=== PATIENT | male | born 1945 | race Hispanic/Latino ===

== ENCOUNTER 2018-04-27 19:26 | Emergency (ER) | payer MEDICARE ==
[~2018-04-27] VITALS: Ht 157.5 cm; Wt 63.5 kg
[2018-04-27] MEDS ORDERED: PANTOPRAZOLE 40 MG 10ML VIAL IV STA (19:34)
[2018-04-27] MEDS ORDERED: ACETAMINOPHEN/CODEINE 300MG - 30MG TAB PO ONE (20:15)
[2018-04-27 20:40] LABS: BILIRUBIN,URINE NEGATIVE (NEGATIVE); CLARITY,URINE SL CLOUDY (CLEAR); COLOR,URINE STRAW (YELLOW); KETONES,URINE TRACE (NEGATIVE); LEUKOCYTE ESTERASE ,URINE 2+ (NEGATIVE); NITRITE,URINE NEGATIVE (NEGATIVE); PROTEIN,URINE DIPSTICK 2+ (NEGATIVE); URINE UROBILINOGEN 1 mg/dL (0.2 - 1)
--- NOTE | 2018-04-27 20:43 | Diagnostic Imaging Report ---
Frontal and lateral views of the chest. HISTORY: Cough, fever, shortness of breath COMPARISON: None available. DISCUSSION: Lungs and pleura: Apparent emphysematous versus postsurgical changes on the right greater than left with possible large bulla. A moderate right pleural effusion which may be a component of loculation. Presumed adjacent atelectasis. Heart and mediastinum: The cardiomediastinal silhouette appears unremarkable. Bones and soft tissues: Chronic appearing fracture versus postsurgical deformity involving the posterior lateral aspect of the right fifth rib, correlate for any surgical history. Probable similar deformity involving the adjacent sixth rib. IMPRESSION: 1. Emphysematous versus postsurgical changes of the right lung and a moderate right pleural effusion which may be a component of loculation. If prior radiographs from an outside institution can be obtained for comparison, this would be helpful. 2. Recommend short term follow up PA and lateral chest radiographs, in 6-8 weeks, to evaluate for resolution. Signed by: Dr. Jone Anderson D.O., M.M.M. on 04/27/2018 8:40 PM
[2018-04-27 20:48] LABS: STREPTOCOCCUS GRP A ANTIGEN NEGATIVE (NEGATIVE)
[2018-04-27 20:49] LABS: BACTERIA,URINE MANY /HPF
[2018-04-27 20:58] LABS: INFLUENZAE A&B ANTIGEN (RAPID) NEGATIVE (NEGATIVE)
[2018-04-27 21:20] LABS: BASOPHILS % 0.2 % (0.0-1.0); HEMATOCRIT 30.5 % (38.2-49.6); HEMOGLOBIN 10.7 g/dL (14.0-18.0); LYMPHOCYTES # (AUTO) 0.7 (1.0-3.2); LYMPHOCYTES % 7.1 % (18.0-39.1); MEAN CORPUSCULAR HEMOGLOBIN 33.8 pg (28-32); MEAN CORPUSCULAR HGB CONC 35.1 g/dL (31-35); MEAN CORPUSCULAR VOLUME 96.2 fL (81-99); MONOCYTES # (AUTO) 1.4 (0.2-0.8); MONOCYTES % 14.9 % (4.4-11.3); NEUTROPHILS # (AUTO) 7.1 (2.1-6.9); NEUTROPHILS % 77.4 % (38.7-80.0); PLATELET COUNT 189 x10e3/uL (140-360); RED BLOOD COUNT 3.17 x10e6/uL (4.3-5.7); RED CELL DISTRIBUTION WIDTH 12.1 % (11.7-14.4)
[2018-04-27 21:38] LABS: ALANINE AMINOTRANSFERASE 14 IU/L (0-55); ALBUMIN/GLOBULIN RATIO 0.9 (0.8-2.0); ALKALINE PHOSPHATASE 61 IU/L (40-150); ANION GAP 13.2 mmol/L (8-16); BLOOD UREA NITROGEN 29 mg/dL (7-26); BUN/CREATININE RATIO 30 (6-25); CALCIUM 8.6 mg/dL (8.4-10.2); CARBON DIOXIDE 22 mmol/L (22-29); CHLORIDE 100 mmol/L (98-107); CREATININE, SERUM 0.97 mg/dL (0.72-1.25); EST GLOMERULAR FILTRATION RATE > 60 ML/MIN (60-); GLUCOSE 146 mg/dL (74-118); POTASSIUM 4.2 mmol/L (3.5-5.1); SODIUM 131 mmol/L (136-145)
[2018-04-27] MEDS ORDERED: AZITHROMYCIN 500MG/NS 250 ML 250 ML IV STA (22:33)
[2018-04-27] MEDS ORDERED: CEFTRIAXONE SOD 1 GM/NS 50 ML 50 ML IV ONE (22:45)
[2018-04-27] MEDS ORDERED: SODIUM CHLORIDE 0.9% 1000ML 1,000 ML IV SCH (22:45)
[2018-04-27] MEDS ORDERED: IOPAMIDOL 370 MG/ML 200 ML INFUS..BTL INJ ONE (23:28)
[2018-04-27] MEDS ORDERED: SODIUM CHLORIDE 0.9% 50ML 50 ML ONE (23:28)
--- NOTE | 2018-04-27 23:32 | Diagnostic Imaging Report ---
EXAMINATION: CT scan of the chest with contrast. TECHNIQUE: Spiral CT images of the chest were performed from the lung apices to the level of the adrenal glands after the intravenous administration of 100 cc of Isovue 370. Coronal and sagittal reformatted images were obtained. COMPARISON: Chest 2 views 04/27/2018 CLINICAL HISTORY:Fever, shortness of breath DISCUSSION: LINES/TUBES: None. LUNGS AND AIRWAYS: Multiple linear opacities are noted in the lateral aspect of the right lower lobe (for example series 3, image 72) anterolisthesis of the lateral aspect of the right middle lobe (for example series 3, image 74), consistent with scarring. Similar linear opacities are noted in the posteromedial aspect of the left lower lobe (example series 3, image 79). No consolidation or masses. 4-5 mm calcified granuloma in the right upper lobe (series 3, image 34). No pulmonary nodules. Airways are clear, without endobronchial lesions. Mild wall thickening in the central aspect of upper and lower bronchi. PLEURA: No pneumothorax or pleural effusions. HEART AND MEDIASTINUM: The thyroid gland is normal. Heart size is borderline enlarged, with mild prominence of the right atrium and left atrium. The aorta is nonaneurysmal. Atherosclerotic calcification of the thoracic aortic arch and to a lesser degree coronary arteries. LYMPH NODES: There is no mediastinal, hilar or axillary lymphadenopathy. Calcified right lower paratracheal lymph node (series 2, image 42). ABDOMEN: Limited contrast-enhanced views of the upper abdomen show no abnormality within the visualized liver, spleen, pancreas, or kidneys. The adrenal glands are unremarkable. BONES AND SOFT TISSUES: Generalized osteopenia. Degenerative disc changes in the thoracic spine. No aggressive lytic lesions. Partial resection of the right fifth rib, which may reflect postoperative changes. IMPRESSION: 1. Linear opacities in right lower lobe and right middle lobe, consistent with scarring. Linear scarring is also noted to a lesser degree in the posteromedial left lower lobe. No consolidation, masses or nodules. 2. Mild wall thickening in the central aspect of the upper and lower bronchi, which may reflect sequela of bronchitis. 3. Borderline cardiomegaly. Signed by: Dr. True Johnson M.D. on 04/27/2018 11:28 PM
[2018-04-28] MEDS ORDERED: KEFLEX500 MG PO (00:19)
[2018-04-28 01:16] VITALS: BP 107/55
== END 2018-04-28 01:20 | disposition home or self-care (01) ==
LOC: ER 19:26
DX: R30.0 Dysuria (principal); N30.90 Cystitis, unspecified without hematuria
CPT/HCPCS: 36415; 71046; 71260; 80053; 81001; 83518; 85025; 87070; 87400; 99284; J0456; J0696; J7030; Q9967

== ENCOUNTER 2018-07-28 09:45 | Inpatient (IN) | payer MEDICARE ==
[~2018-07-28] VITALS: Ht 160 cm; Wt 64.9 kg
[~2018-07-28 09:45] MED LIST: KEFLEX500 MG PO
--- OUTSIDE RECORDS SUMMARY | 2018-07-28 09:48 | XMS REPORT ---
Author Author [facility] Address Unknown Phone Unavailable Care Team Providers Care Office Rn Name Role Phone Chelsie RUBIO Unavailable Unavailable Problems This patient has no known problems. Allergies, Adverse Reactions, Alerts This patient has no known allergies or adverse reactions. Medications This patient has no known medications. Results Test Description Test Time Test Comments Text Results Atomic Results Result Comments CT CHEST W 2018-04-27 23:20:00 [place] [address] Patient Name: LUIS ARMANDO CRANDALL MR #: [id number] : 1945 Age/Sex: 73/M Req #: [id number] [facility] Physician: Ordered by: TOMÁS RUBIO MD Report #: [id number] Location: ER Room/Bed: Procedure: [id number] CT/CT CHEST W Exam Date: 04/27/18 Exam Time: 2251 REPORT STATUS: Signed EXAMINATION: CT scan of the chest with contrast. TECHNIQUE: Spiral CT images of the chest were performed from the lung apices to the level of the adrenal glands after the intravenous administration of 100 cc of Isovue 370. Coronal and sagittal reformatted images were obtained. COMPARISON: Chest 2 views 04/27/2018 CLINICAL HISTORY:Fever, shortness of breath DISCUSSION: LINES/TUBES: None. LUNGS AND AIRWAYS: Multiple linear opacities are noted in the lateral aspect of the right lower lobe (for example series 3, image 72) anterolisthesis of the lateral aspect of the right middle lobe (for example series 3, image 74), consistent with scarring. Similar linear opacities are noted in the posteromedial aspect of the left lower lobe (example series 3, image 79). No consolidation or masses. 4-5 mm calcified granuloma in the right upper lobe (series 3, image 34). No pulmonary nodules. Airways are clear, without endobronchial lesions. Mild wall thickening in the central aspect of upper and lower bronchi. PLEURA: No pneumothorax or pleural effusions. HEART AND MEDIASTINUM: The thyroid gland is normal. Heart size is borderline enlarged, with mild prominence of the right atrium and left atrium. The aorta is nonaneurysmal. Atherosclerotic calcification of the thoracic aortic arch and to a lesser degree coronary arteries. LYMPH NODES: There is no mediastinal, hilar or axillary lymphadenopathy. Calcified right lower paratracheal lymph node (series 2, image 42). ABDOMEN: Limited contrast-enhanced views of the upper abdomen show no abnormality within the visualized liver, spleen, pancreas, or kidneys. The adrenal glands are unremarkable. BONES AND SOFT TISSUES: Generalized osteopenia. Degenerative disc changes in the thoracic spine. No aggressive lytic lesions. Partial resection of the right fifth rib, which may reflect postoperative changes. IMPRESSION: 1. Linear opacities in right lower lobe and right middle lobe, consistent with scarring. Linear scarring is also noted to a lesser degree in the posteromedial left lower lobe. No consolidation, masses or nodules. 2. Mild wall thickening in the central aspect of the upper and lower bronchi, which may reflect sequela of bronchitis. 3. Borderline cardiomegaly. Signed by: Dr. Juan Johnson M.D. on 04/27/2018 11:28 PM Dictated By: JUAN JOHNSON MD 27 Transcribed By: DARRON on 04/27/182327 COPY TO: TOMÁS RUBIO MD CHEST 2 VIEWS 2018-04-27 20:33:00 [place] [address] Patient Name: LUIS ARMANDO CRANDALL MR #: [id number] : 1945 Age/Sex: 73/M Req #: [id number] Physician: Ordered by: TOMÁS RUBIO MD Report #: [id number] Location: ER Room/Bed: Procedure: [id number] DX/CHEST 2 VIEWS Exam Date: 04/27/18 Exam Time: 2024 REPORT STATUS: Signed Frontal and lateral views of the chest. HISTORY: Cough, fever, shortness of breath COMPARISON: None available. DISCUSSION: Lungs and pleura: Apparent emphysematous versus postsurgical changes on the right greater than left with possible large bulla. A moderate right pleural effusion which may be a component of loculation. Presumed adjacent atelectasis. Heart and mediastinum: The cardiomediastinal silhouette appears unremarkable. Bones and soft tissues: Chronic appearing fracture versus postsurgical deformity involving the posterior lateral aspect of the right fifth rib, correlate for any surgical history. Probable similar deformity involving the adjacent sixth rib. IMPRESSION: 1. Emphysematous versus postsurgical changes of the right lung and a moderate right pleural effusion which may be a component of loculation. If prior radiographs from an outside institution can be obtained for comparison, this would be helpful. 2. Recommend short term follow up PA and lateral chest rad iographs, in 6-8 weeks, to evaluate for resolution. Signed by: Dr. Brandi Anderson D.O., M.M.M. on 04/27/2018 8:40 PM Dictated By: BRANDI ANDERSON DO 39 Transcribed By: DARRON on 04/27/182039 COPY TO: OTMÁS RUBIO MD
[2018-07-28] MEDS ORDERED: SODIUM CHLORIDE 0.9% 1000ML 1,000 ML IV STA (10:10)
[2018-07-28] MEDS ORDERED: ONDANSETRON HCL INJ 2MG/ML 2ML 2 MG/ML VIAL IV STA (10:10)
[2018-07-28] MEDS ORDERED: MORPHINE SULFATE 2 MG/ML SYR 1ML IV STA (10:10)
[2018-07-28] MEDS ORDERED: FOLIC ACID1 MG PO (10:12)
[2018-07-28] MEDS ORDERED: FERROUS SULFAT325 MG PO (10:12)
[2018-07-28] MEDS ORDERED: METFORMIN HCL500 MG PO (10:12)
[2018-07-28] MEDS ORDERED: TAMSULOSIN PO (10:12)
[2018-07-28] MEDS ORDERED: LACTULOSE10 GM/151 PO (10:12)
[2018-07-28] MEDS ORDERED: OXYBUTYNIN CHLOR5 M1 PO (10:12)
[2018-07-28] MEDS ORDERED: ENALAPRIL MALEA20 MG PO (10:12)
[2018-07-28] MEDS ORDERED: DIATRIZOATE MEGL/DIATRIZOA SOD 30 ML BTL PO ONE (10:26)
[2018-07-28] MEDS ORDERED: MORPHINE SULFATE INJ 4 MG/ML INJ 1ML IV ONE (10:30)
[2018-07-28 10:35] LABS: INR 0.86; PROTHROMBIN TIME 12.2 seconds (11.9-14.5)
[2018-07-28 10:36] LABS: PARTIAL THROMBOPLASTIN TIME 33.7 seconds (23.8-35.5)
[2018-07-28 10:53] LABS: ALANINE AMINOTRANSFERASE 9 IU/L (0-55); ALBUMIN 4.1 g/dL (3.5-5.0); ALBUMIN/GLOBULIN RATIO 1.2 (0.8-2.0); ALKALINE PHOSPHATASE 84 IU/L (40-150); ANION GAP 11.5 mmol/L (8-16); BLOOD UREA NITROGEN 20 mg/dL (7-26); BUN/CREATININE RATIO 22 (6-25); CALCIUM 9.8 mg/dL (8.4-10.2); CARBON DIOXIDE 24 mmol/L (22-29); CHLORIDE 108 mmol/L (98-107); CREATINE KINASE 47 IU/L (30-200); CREATININE, SERUM 0.92 mg/dL (0.72-1.25); EST GLOMERULAR FILTRATION RATE > 60 ML/MIN (60-); GLUCOSE 168 mg/dL (74-118); POTASSIUM 4.5 mmol/L (3.5-5.1); SODIUM 139 mmol/L (136-145)
[2018-07-28 11:06] LABS: BASOPHILS % 0.3 % (0.0-1.0); EOSINOPHILS # (AUTO) 0.1 (0.0-0.4); EOSINOPHILS % 0.8 % (0.0-6.0); HEMOGLOBIN 13.1 g/dL (14.0-18.0); LYMPHOCYTES # (AUTO) 1.1 (1.0-3.2); LYMPHOCYTES % 11.7 % (18.0-39.1); MEAN CORPUSCULAR HEMOGLOBIN 32.8 pg (28-32); MEAN CORPUSCULAR HGB CONC 34.5 g/dL (31-35); MONOCYTES # (AUTO) 0.5 (0.2-0.8); MONOCYTES % 5.7 % (4.4-11.3); NEUTROPHILS # (AUTO) 7.6 (2.1-6.9); PLATELET COUNT 269 x10e3/uL (140-360); RED CELL DISTRIBUTION WIDTH 13.1 % (11.7-14.4)
[2018-07-28] MEDS ORDERED: HYDRALAZINE HCL 20 MG/ML VIAL IV STA (11:43)
--- NOTE | 2018-07-28 12:09 | NUR ---
PATIENT HAD ONE EPISODE OF VOMITING WITH CONSUMING ORAL CONTRAST; PATIENT INSTRUCTED TO HOLD ON REMAINING AMOUNT; WILL CONTINUE TO MONITOR
[2018-07-28] MEDS: SODIUM CHLORIDE 0.9% 250ML IRRIG IR SCH ×3 (12:30→20:33)
[2018-07-28] MEDS ORDERED: MORPHINE SULFATE 2 MG/ML SYR 1ML IV PRN (12:30)
[2018-07-28] MEDS ORDERED: ONDANSETRON HCL INJ 2MG/ML 2ML 2 MG/ML VIAL IV PRN (12:30)
[2018-07-28] MEDS ORDERED: DEXTROSE 50% SYRINGE 50 ML IV PRN (12:45)
[2018-07-28] MEDS ORDERED: MORPHINE SULFATE INJ 4 MG/ML INJ 1ML IV PRN (12:45)
[2018-07-28 13:00] LABS: BILIRUBIN,URINE NEGATIVE (NEGATIVE); COLOR,URINE YELLOW (YELLOW); KETONES,URINE NEGATIVE (NEGATIVE); LEUKOCYTE ESTERASE ,URINE TRACE (NEGATIVE); NITRITE,URINE NEGATIVE (NEGATIVE); PROTEIN,URINE DIPSTICK TRACE (NEGATIVE); URINE UROBILINOGEN 0.2 mg/dL (0.2 - 1)
[2018-07-28] MEDS ORDERED: CEFEPIME 1GM/NS 0.9% 50 ML 50 ML IV SCH (13:00)
[2018-07-28 13:04] LABS: CLARITY,URINE CLOUDY (CLEAR)
--- NOTE | 2018-07-28 13:08 | Diagnostic Imaging Report ---
Examination: Single AP view of the chest. COMPARISON: CT chest 04/27/2018 INDICATION: Abdominal pain DISCUSSION: Lung volumes are low. Linear opacity in the right mid and lower lungs and. No consolidation, pleural effusion, or pneumothorax. Stable cardiomediastinal contour. No acute osseous abnormality. IMPRESSION: Low lung volumes without acute cardiopulmonary abnormality. Stable linear scar in the right mid and lower lung zones. Signed by: Dr. Zhang Gracia M.D. on 07/28/2018 1:04 PM
[2018-07-28] MEDS ORDERED: LORAZEPAM INJ 2 MG/ML VIAL IV ONE (13:15)
[2018-07-28 13:23] LABS: BACTERIA,URINE MANY /HPF; EPITHELIAL CELLS,URINE FEW /LPF
[2018-07-28] MEDS ORDERED: BENZOCAINE/TETRACAINE/BUTAMBEN AERO SPRAY 56 GM CAN ONE (13:23)
[2018-07-28] MEDS ORDERED: METRONIDAZOLE 250MG/NS 50ML 50 ML IV SCH ×2 (13:30→18:00)
[2018-07-28] MEDS ORDERED: IOPAMIDOL 370 MG/ML 200 ML INFUS..BTL INJ ONE (13:51)
[2018-07-28] MEDS ORDERED: SODIUM CHLORIDE 0.9% 50ML 50 ML ONE (13:51)
--- NOTE | 2018-07-28 14:05 | Diagnostic Imaging Report ---
EXAMINATION: CT of the abdomen and pelvis with contrast. TECHNIQUE: Spiral CT images of the abdomen and pelvis were performed from the lung bases to the lesser trochanters after the intravenous administration of 100 cc Isovue-370 and the oral administration of Gastrografin.. Coronal and sagittal reformatted images were obtained. COMPARISON: CT chest 04/27/2018 CLINICAL HISTORY:Abdominal pain, concern for small bowel obstruction DISCUSSION: ABDOMEN/PELVIS: LOWER THORAX:Subsegmental atelectasis or scar in the lower lobes. No pleural or pericardial effusion. HEPATOBILIARY: No focal hepatic lesions. No intra-or extrahepatic biliary ductal dilation. The gallbladder has been removed. SPLEEN: Multiple calcified granulomata. No splenomegaly. PANCREAS: No focal masses or ductal dilatation. ADRENALS: No adrenal nodules. KIDNEYS/URETERS: Lobulated contour of the kidneys may be congenital or postinflammatory. 1.8 cm low-attenuation lesion in the interpolar left kidney has slightly greater than expected attenuation for a simple cyst (30 Hounsfield units). No additional focal renal lesion. No hydronephrosis or calculi. PELVIC ORGANS/BLADDER: The urinary bladder is distended and unremarkable. Probable postsurgical changes of transurethral prostatectomy. PERITONEUM/RETROPERITONEUM: Small volume perihepatic and right paracolic gutter free fluid average attenuation 15-20 Hounsfield units. No free air. LYMPH NODES: No pelvic sidewall, retroperitoneal, or mesenteric lymphadenopathy. VESSELS: Atherosclerotic calcification of the abdominal aorta, major branch vessels, and iliac arterial systems without aneurysmal dilatation. Mild stenosis of the proximal SMA due to noncalcified atherosclerotic plaque (series 2 image 28). Widely patent celiac and LINDEN origins. Patent single left and dual right renal arteries. Retroaortic left renal vein. Portal vein, splenic vein, and central superior mesenteric vein are patent. GI TRACT: Extensive diverticulosis of the distal descending and proximal sigmoid colon without wall thickening or adjacent inflammatory change. There is moderate dilatation of the ascending colon to a maximum of 7.7 cm in diameter, with mild dilatation of the transverse colon. No transition point is identified.. There is no small bowel dilatation. The appendix is not identified. BONES AND SOFT TISSUE: Extensive postsurgical changes of lumbar spine fusion. Diffuse osteopenia. No osseous destructive lesions. Postsurgical changes of right inguinal hernia repair. IMPRESSION: Marked gaseous distention of the cecum and ascending colon with lesser involvement of the transverse colon suggests ileus in the absence of transition point or obstructing mass lesion. No mabel pneumoperitoneum. Presumed reactive trace perihepatic and paracolic ascites. Sigmoid diverticulosis without findings of diverticulitis. Hypoattenuating left renal lesion is of greater than expected attenuation for a simple cyst and may reflect presence of proteinaceous or hemorrhagic contents. Cystic nature may be confirmed by nonemergent renal ultrasound. Atherosclerotic vascular disease. Signed by: Dr. Zhang Gracia M.D. on 07/28/2018 2:01 PM
--- NOTE | 2018-07-28 14:10 | NUR ---
The p. was received fro ER via stretcher with nasogastric tube in place. It was placed to low intermittent wall suction and dark reddish brown liquid returned. There is an iv cath 18g in place to the right ac. The pt is easily aroused and denies pain at this time. adm procedures were completed and iv fluids initiated. The first dose of cefepime initiated and the flagyl will be given. The pt.'s son is at bedside. He has voided since arrival to the unit and is currently resting quietly.
[2018-07-28 14:35] VITALS: BP 137/63
[2018-07-28 14:40] VITALS: BP 137/63
--- NOTE | 2018-07-28 14:40 | Diagnostic Imaging Report ---
Exam: Abdominal film Clinical History: NG tube placement Comparison: CT abdomen and pelvis same day DISCUSSION: Enteric tube tip projects over the gastric fundus with sidehole projecting over the proximal gastric body. Gaseous distention of the large bowel seen to better advantage on comparison CT. Partially visualized lumbar spine fusion hardware. The right flank is not included on the radiograph. IMPRESSION: Enteric tube tip projects over the gastric fundus, with side-port distal to the GE junction. Signed by: Dr. Zhang Gracia M.D. on 07/28/2018 2:37 PM
[2018-07-28 14:46] VITALS: BP 137/63
[2018-07-28] MEDS: SODIUM CHLORIDE 0.9% 1000ML 1,000 ML IV SCH ×2 (15:11→20:24)
[2018-07-28] MEDS: INSULIN REGULAR, HUMAN 100 UNIT/1 ML 3ML VIAL SQ SCH ×2 (16:29→20:33)
[2018-07-28 17:06] VITALS: BP 177/79
[2018-07-28] MEDS: PIPER-TAZ 3.375 GM 50 ML IV SCH (18:00)
--- NOTE | 2018-07-28 18:10 | NUR ---
Dr. Khalil visited and new orders were given. He stated to inform the oncoming shift to watch the pt. closely and call him if any changes noted. A 16fr guajardo cath was placed successfully without any difficulty and return of 300cc light clear yellow obtained.
--- NOTE | 2018-07-28 19:30 | NUR ---
Rounding done & report received. Patient is lethargic but easily aroused, respirations even & unlabored, no distress noted. NGT to L nare, draining dark reddish brown fluid. Patient c/o abdominal pain, pain level 5/10, denies any pain medication at this time, denies any N/V at this time, informed patient to notify us if any changes occur. Xiong in place, draining clear yellow urine. Family at bedside. Call light within reach, side rails x2 raised, & bed set to lowest position.
[2018-07-28 20:00] VITALS: BP 188/74
[2018-07-28] MEDS: METRONIDAZOLE 500MG/NS 100ML 100 ML IV SCH (21:05)
[2018-07-28 23:40] VITALS: BP 188/74
[2018-07-29] VITALS (8 sets, daily range): BP systolic 145–178; BP diastolic 66–75
[2018-07-29] MEDS: SODIUM CHLORIDE 0.9% 250ML IRRIG IR SCH ×6 (00:25→20:43)
[2018-07-29] MEDS: PIPER-TAZ 3.375 GM 50 ML IV SCH ×4 (00:25→17:06)
[2018-07-29] MEDS: SODIUM CHLORIDE 0.9% 1000ML 1,000 ML IV SCH ×3 (01:51→21:24)
--- NOTE | 2018-07-29 02:34 | History and Physical ---
This is a 73-year-old male patient of mine, presented to the emergency room with complaining of abdominal pain. CHIEF COMPLAINT: Abdominal pain. HISTORY OF PRESENT ILLNESS: Mr. Samson is a 73-year-old male patient with chronic abdominal problem with constipation and irritable bowel syndrome with recurrent obstruction, presented to the emergency room with right upper quadrant epigastric pain and left upper abdomen also pain. The patient was describing some moderately severe pain. The patient had also feeling nauseous with pain. The patient denied any vomiting or diarrhea. REVIEW OF SYSTEMS: The patient has no constipation or black stools, but the patient has chronic back pain and weakness and poor ambulatory status. PAST MEDICAL HISTORY: The patient has a history of diabetes mellitus, hypertension, anemia, chronic back pain, BPH, hypertensive heart disease. PAST SURGICAL HISTORY: The patient had back surgery, cholecystectomy, and prostatectomy. ALLERGIES: NO KNOWN DRUG ALLERGIES. SOCIAL HISTORY: Denies smoking. Denies using alcohol. FAMILY HISTORY: Hypertension. MEDICATIONS: See from the list. PHYSICAL EXAMINATION: GENERAL: He is a middle-aged male patient lying in bed, not in any acute distress. VITAL SIGNS: Temperature 99, pulse rate 80, respiration rate 20, blood pressure 120/80. HEENT: Normocephalic, atraumatic. NECK: No JVD. No lymphadenopathy. LUNGS: Bilaterally equal fair entry. No rales. No rhonchi. HEART: S1 and S2. Regular rate and rhythm. No gallop. ABDOMEN: The patient has mild epigastric in the right upper quadrant tenderness. NEUROLOGIC: No focal neurological deficits. EXTREMITIES: Peripheral pulses present. No edema. ADMITTING IMPRESSION/DIAGNOSES: Intestinal obstruction, more likely at transverse colon , abdominal pain, history of irritable bowel syndrome, hypertensive heart disease, diabetes mellitus, and chronic back pain. PLAN: The patient will be admitted with the above diagnoses. The patient on IV fluid. Keep n.p.o. obtain General Surgery consultation, Dr. Khalil. NG tube and do NG tube suctioning. Surgery consultation has been done by Dr. Markus Khalil. Probably thinking the patient might be developing volvulus and he may need surgery if obstruction does not resolve spontaneously. MD CRISTIAN Valencia/WILTON /[id number]
--- NOTE | 2018-07-29 05:46 | NUR ---
Bed alarm went off, patient was found out of bed confused, stated he felt the need to urinate, reminded him he had a guajardo in place, assisted patient back into bed. Gown was noted to be damp, new gown was placed & accu check was done, BG @ 100. Patient states his pain has improved and abdomen appears less distended. Reminded patient to use call light when assistance is needed, voiced understanding.
[2018-07-29] MEDS: METRONIDAZOLE 500MG/NS 100ML 100 ML IV SCH ×3 (06:26→22:00)
[2018-07-29 06:35] LABS: BASOPHILS % 0.3 % (0.0-1.0); EOSINOPHILS % 0.3 % (0.0-6.0); HEMATOCRIT 31.7 % (38.2-49.6); HEMOGLOBIN 10.9 g/dL (14.0-18.0); MEAN CORPUSCULAR HEMOGLOBIN 32.3 pg (28-32); MEAN CORPUSCULAR HGB CONC 34.4 g/dL (31-35); MEAN CORPUSCULAR VOLUME 94.1 fL (81-99); MONOCYTES # (AUTO) 0.9 (0.2-0.8); MONOCYTES % 8.3 % (4.4-11.3); NEUTROPHILS # (AUTO) 9.2 (2.1-6.9); NEUTROPHILS % 81.8 % (38.7-80.0); PLATELET COUNT 228 x10e3/uL (140-360); RED BLOOD COUNT 3.37 x10e6/uL (4.3-5.7); RED CELL DISTRIBUTION WIDTH 12.9 % (11.7-14.4)
[2018-07-29 06:53] LABS: BLOOD UREA NITROGEN 8 mg/dL (7-26); BUN/CREATININE RATIO 13 (6-25); CALCIUM 8.3 mg/dL (8.4-10.2); CARBON DIOXIDE 23 mmol/L (22-29); CHLORIDE 108 mmol/L (98-107); CREATININE, SERUM 0.64 mg/dL (0.72-1.25); EST GLOMERULAR FILTRATION RATE > 60 ML/MIN (60-); GLUCOSE 106 mg/dL (74-118); SODIUM 138 mmol/L (136-145)
--- NOTE | 2018-07-29 07:12 | NUR ---
PT RESTING IN BED AA0X3. PT IN IN NO S.S OF DISTRESS. DENIES PAIN AT THIS TIME. PT HAS A RIGHT AC 18 G WITH NS AT 125CCHR. SITE IS CLEAN AND DRY PT HAS A VAIL CATH DRAINING CLEAR YELLOW URINE PT HAS AN NG TUBE TO THE LEFT NARE WITH LCS, DRAINAGE IN CANISTER IS DARK BROWN IN COLOR PT ABD IS DISTENDED , DENIES PAIN ON PALPATION ABD SOUNDS ARE PRESENT PT IS NPO FOR NOW WILL CONTINUE TO MONITOR CLOSELY, SIDE RAILSX2, BED WHEELS LOCKED, CALL LIGHT IS WITHIN EASY REACH, INSTRUCTED TO CALL FOR ASSISTANCE IF NEEDED
[2018-07-29] MEDS: INSULIN REGULAR, HUMAN 100 UNIT/1 ML 3ML VIAL SQ SCH ×4 (07:30→20:42)
[2018-07-29] MEDS: TAMSULOSIN HCL 0.4 MG CAP PO SCH (09:00)
[2018-07-29] MEDS: ENALAPRIL MALEATE 10 MG TAB PO SCH (09:00)
[2018-07-29] MEDS: FOLIC ACID 1 MG TAB PO SCH (09:00)
[2018-07-29] MEDS: OXYBUTYNIN CHLORIDE XL 5 MG TAB PO SCH (09:00)
[2018-07-29] MEDS: FERROUS SULFATE 325 MG TAB PO SCH (09:00)
--- NOTE | 2018-07-29 09:06 | Diagnostic Imaging Report ---
Exam: 3 view abdomen with upright chest dated 07/29/2018 at 7:47 AM History: Bowel obstruction Comparison: 07/28/2018 CT abdomen and pelvis and KUB Findings: Massive large bowel dilatation involving the cecum measures up to 16 cm. There is also transverse colon dilatation measuring up to 7 cm in the midabdomen. Postoperative changes involving the lower lumbar spine with rods and disc cages. No free air. An NG tube is present within the nondistended stomach. Upright chest reveals emphysematous changes involving the right hemithorax. There is left retrocardiac atelectasis. 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 Signed by: Dr. Desean Jang DO on 07/29/2018 9:02 AM
--- NOTE | 2018-07-29 09:20 | NUR ---
NS ENEMA GIVEN, PT HAS A SMALL BM WITH PEDAL SIZED SEDIMENTS OF STOOL PT STATES ABD COMFORT AFTER BM.
--- NOTE | 2018-07-29 09:30 | NUR ---
MD CR ROUNDED, HAS NOW ORDERS TO REPLACED LOW K OF 3.3 WITH 40MEQ IV ONCE ASKED MD CR IF IT WAS OK TO DC VAIL. STATES TO LEAVE FOR ANOTHER DAY FOR POSSIBLE SX NO ORDERS TO REMOVE VAIL GIVEN AT THIS TIME
[2018-07-29] MEDS ORDERED: POTASSIUM CHLORIDE 20MEQ/100ML 200 ML IV ONE (10:15)
[2018-07-29] MEDS ORDERED: METOPROLOL TARTRATE INJ 1 MG/ML VIAL IV PRN (10:15)
--- NOTE | 2018-07-29 19:08 | NUR ---
RECEIVED PT RESTING IN BED WITH NO S/S OF DISTRESS.RESPIRATIONS EVEN/NON LABORED.PT HAS A NG TUBE TO LEFT NARE CONNECTED TO LCS.DARK BROWN COLORED OUTPUT NOTED.PT HAS A VAIL IN PLACE DRAINING CLEAR YELLOW URINE.PT DENIES ANY PAIN AT THIS TIME.INSTRUCTED PT TO CALL FOR ASSISTANCE NEEDED BY USING CALL LIGHT.PT VERBALIZED UNDERSTANDING.BED IN LOWEST/LOCKED POSITION.BED ALARM ACTIVATED.CALL LIGHT WITHIN EASY REACH.
[2018-07-30] VITALS (10 sets, daily range): BP systolic 122–168; BP diastolic 66–77
[2018-07-30] MEDS: SODIUM CHLORIDE 0.9% 250ML IRRIG IR SCH ×4 (00:01→12:01)
[2018-07-30] MEDS: SODIUM CHLORIDE 0.9% 1000ML 1,000 ML IV SCH ×3 (04:23→23:32)
[2018-07-30] MEDS: METRONIDAZOLE 500MG/NS 100ML 100 ML IV SCH ×3 (05:36→21:58)
[2018-07-30 05:51] LABS: BASOPHILS % 0.4 % (0.0-1.0); EOSINOPHILS # (AUTO) 0.1 (0.0-0.4); EOSINOPHILS % 0.5 % (0.0-6.0); HEMATOCRIT 31.1 % (38.2-49.6); HEMOGLOBIN 10.8 g/dL (14.0-18.0); LYMPHOCYTES # (AUTO) 1.3 (1.0-3.2); LYMPHOCYTES % 14.1 % (18.0-39.1); MEAN CORPUSCULAR HEMOGLOBIN 32.6 pg (28-32); MEAN CORPUSCULAR HGB CONC 34.7 g/dL (31-35); MONOCYTES # (AUTO) 0.8 (0.2-0.8); MONOCYTES % 8.3 % (4.4-11.3); NEUTROPHILS % 76.2 % (38.7-80.0); PLATELET COUNT 196 x10e3/uL (140-360); RED BLOOD COUNT 3.31 x10e6/uL (4.3-5.7); RED CELL DISTRIBUTION WIDTH 12.8 % (11.7-14.4)
[2018-07-30 06:16] LABS: ALANINE AMINOTRANSFERASE 7 IU/L (0-55); ALBUMIN/GLOBULIN RATIO 1.1 (0.8-2.0); ALKALINE PHOSPHATASE 54 IU/L (40-150); ANION GAP 13.1 mmol/L (8-16); BLOOD UREA NITROGEN 10 mg/dL (7-26); BUN/CREATININE RATIO 14 (6-25); CALCIUM 8.5 mg/dL (8.4-10.2); CARBON DIOXIDE 30 mmol/L (22-29); CHLORIDE 103 mmol/L (98-107); CREATININE, SERUM 0.69 mg/dL (0.72-1.25); EST GLOMERULAR FILTRATION RATE > 60 ML/MIN (60-); GLUCOSE 77 mg/dL (74-118); POTASSIUM 3.1 mmol/L (3.5-5.1); SODIUM 143 mmol/L (136-145)
[2018-07-30] MEDS: PIPER-TAZ 3.375 GM 50 ML IV SCH ×4 (06:20→18:00)
--- NOTE | 2018-07-30 06:52 | NUR ---
REPORT GIVEN TO ONCOMING NURSE,WALKING ROUNDS MADE.PT RESTING IN BED WITH NO S/S OF DISTRESS.
--- NOTE | 2018-07-30 07:10 | NUR ---
PT RESTING IN BED AA0X3. PT IN IN NO S.S OF DISTRESS. DENIES PAIN AT THIS TIME. PT HAS A RIGHT AC 18 G WITH NS AT 125CCHR. SITE IS CLEAN AND DRY PT HAS A VAIL CATH DRAINING LIGHT COOKIE YELLOW URINE PT HAS AN NG TUBE TO THE LEFT NARE WITH LCS, DRAINAGE IN CANISTER IS DARK BROWN IN COLOR PT ABD IS DISTENDED BUT SOFT, DENIES PAIN ON PALPATION ABD SOUNDS ARE PRESENT PT REMAINS NPO WILL CONTINUE TO MONITOR CLOSELY, SIDE RAILSX2, BED WHEELS LOCKED, CALL LIGHT IS WITHIN EASY REACH, INSTRUCTED TO CALL FOR ASSISTANCE IF NEEDED
[2018-07-30] MEDS: INSULIN REGULAR, HUMAN 100 UNIT/1 ML 3ML VIAL SQ SCH ×4 (07:30→20:56)
[2018-07-30] MEDS: TAMSULOSIN HCL 0.4 MG CAP PO SCH (07:36)
[2018-07-30] MEDS: FERROUS SULFATE 325 MG TAB PO SCH (07:36)
[2018-07-30] MEDS: FOLIC ACID 1 MG TAB PO SCH (07:36)
[2018-07-30] MEDS: ENALAPRIL MALEATE 10 MG TAB PO SCH (07:36)
[2018-07-30] MEDS: OXYBUTYNIN CHLORIDE XL 5 MG TAB PO SCH (07:36)
--- NOTE | 2018-07-30 08:21 | NUR ---
paged md herzog for orders on npo status and low bs. awaiting for call back
--- NOTE | 2018-07-30 09:12 | NUR ---
REPAGED MD CR REGARDING PT LOW BS. PT IS ASYMPTOMATIC AT WITH A 72 READING AWAITING FOR CALL BACK
--- NOTE | 2018-07-30 10:27 | Diagnostic Imaging Report ---
Exam: Abdominal film with upright chest radiograph Clinical History: Volvulus Comparison: Acute abdominal series 07/29/2018 DISCUSSION: Chest: Stable position of enteric tube. Lungs remain well-inflated with chronic fibrotic changes in the bases. No new consolidation. Stable cardiomediastinal contour. Abdomen: No significant interval change in massive cecal dilatation and less extensive dilatation of the transverse colon. No mabel pneumoperitoneum. Enteric contrast material ingested for CT abdomen and pelvis 07/28/2018 now opacifies the rectum. No mass effect or organomegaly. Lumbar spine fusion hardware. IMPRESSION: Unchanged massive gaseous distention of the cecum and transverse colon, with interval passage of enteric contrast material into the rectum. No mabel pneumoperitoneum. Signed by: Dr. Zhang Gracia M.D. on 07/30/2018 10:24 AM
[2018-07-30] MEDS ORDERED: DEXTROSE 5%/0.45% SOD CHL 1,000 ML IV SCH (12:00)
[2018-07-30] MEDS ORDERED: POTASSIUM CHLORIDE 20MEQ/100ML 200 ML IV ONE (12:00)
--- NOTE | 2018-07-30 14:41 | NUR ---
ng tube dc. guajardo dc. pt tolerated well pt is now on clear liquid diet
--- NOTE | 2018-07-30 18:49 | NUR ---
PT VOIDED 150 AFTER VAIL REMOVAL
[2018-07-31] VITALS (8 sets, daily range): BP systolic 130–170; BP diastolic 60–70
[2018-07-31] MEDS: PIPER-TAZ 3.375 GM 50 ML IV SCH ×4 (00:14→17:26)
[2018-07-31] MEDS: METRONIDAZOLE 500MG/NS 100ML 100 ML IV SCH ×3 (05:18→21:48)
[2018-07-31 06:35] LABS: ANION GAP 10.1 mmol/L (8-16); BLOOD UREA NITROGEN 7 mg/dL (7-26); BUN/CREATININE RATIO 10 (6-25); CARBON DIOXIDE 29 mmol/L (22-29); CHLORIDE 101 mmol/L (98-107); CREATININE, SERUM 0.68 mg/dL (0.72-1.25); EST GLOMERULAR FILTRATION RATE > 60 ML/MIN (60-); GLUCOSE 104 mg/dL (74-118); POTASSIUM 3.1 mmol/L (3.5-5.1); SODIUM 137 mmol/L (136-145)
[2018-07-31] MEDS: SODIUM CHLORIDE 0.9% 1000ML 1,000 ML IV SCH (06:45)
--- NOTE | 2018-07-31 07:18 | NUR ---
REPORT GIVEN TO ONCOMING NURSE,WALKING ROUNDS DONE.PT RESTING IN BED WITH NO S/S OF DISTRESS
[2018-07-31] MEDS: INSULIN REGULAR, HUMAN 100 UNIT/1 ML 3ML VIAL SQ SCH ×4 (07:30→20:10)
--- NOTE | 2018-07-31 08:00 | NUR ---
The pt. is out of the room for abd xray. He denies pain or discomfort at this time.
[2018-07-31] MEDS: TAMSULOSIN HCL 0.4 MG CAP PO SCH (08:59)
[2018-07-31] MEDS: FOLIC ACID 1 MG TAB PO SCH (08:59)
[2018-07-31] MEDS: FERROUS SULFATE 325 MG TAB PO SCH (08:59)
[2018-07-31] MEDS: OXYBUTYNIN CHLORIDE XL 5 MG TAB PO SCH (08:59)
[2018-07-31] MEDS: ENALAPRIL MALEATE 10 MG TAB PO SCH (09:00)
--- NOTE | 2018-07-31 09:08 | Diagnostic Imaging Report ---
Exam: 3 view abdomen with upright chest dated 07/31/2018 at 8:00 AM History: Bowel obstruction Comparison: 07/30/2018 KUB Findings: Massive large bowel dilatation involving the cecum is slightly smaller and now measures 14.3 cm. There is also transverse colon dilatation measuring similar in size in the midabdomen. Postoperative changes involving the lower lumbar spine with rods and disc cages. No free air. The NG tube has been withdrawn. Contrast has reached the rectum. Upright chest reveals emphysematous changes involving the right hemithorax. There is left retrocardiac atelectasis. Impression: Findings of cecal volvulus with slight decrease in the maximal size. Signed by: Dr. Desean Jang DO on 07/31/2018 9:05 AM
[2018-07-31] MEDS ORDERED: POTASSIUM CHLORIDE 20 MEQ TAB CR PO ONE (10:30)
--- NOTE | 2018-07-31 10:53 | NUR ---
IMM EXPLAINED TO PT, SIGNED BY PT AND PLACED IN CHART COPY TO PT IN CARE TRANSITIONS FOLDER
[2018-07-31] MEDS ORDERED: SODIUM CHLORIDE 0.9% 250ML 250 ML ONE (17:19)
--- NOTE | 2018-07-31 18:58 | NUR ---
WALKING ROUNDS PERFORMED, RECEIVED PT LAYING SEMI FOWLERS IN BED, AAOX3, RR EVEN AND NON-LABORED, ON ROOM AIR. NO S/SX OF DISTRESS NOTED. LEFT PT LAYING SEMI FOWLERS IN BED, BED IN LOW LOCKED POSITION, SIDE RAILS UPX2, CALL LIGHT AND PHONE WITHIN REACH.
--- NOTE | 2018-07-31 19:49 | NUR ---
PAGE PLACED FOR MD Coy CR CONCERNING ELEVATED BP AND BRADYCARDIC WITH ONLY METOPROLOL TO GIVE. WAITING FOR CALLBACK.
--- NOTE | 2018-07-31 20:52 | NUR ---
SPOKE WITH MD Coy CR CONCERNING PT ELEVATED BP WITH LOW HR. NEW ORDERS RECEIVED.
[2018-07-31] MEDS ORDERED: CLONIDINE HCL 0.1 MG TAB PO PRN (21:00)
[2018-08-01] VITALS (8 sets, daily range): BP systolic 115–191; BP diastolic 56–80
[2018-08-01] MEDS: PIPER-TAZ 3.375 GM 50 ML IV SCH ×4 (00:20→18:10)
[2018-08-01 06:17] LABS: ALANINE AMINOTRANSFERASE 19 IU/L (0-55); ALBUMIN/GLOBULIN RATIO 1.1 (0.8-2.0); ALKALINE PHOSPHATASE 69 IU/L (40-150); ANION GAP 9.9 mmol/L (8-16); BLOOD UREA NITROGEN 5 mg/dL (7-26); BUN/CREATININE RATIO 7 (6-25); CALCIUM 8.6 mg/dL (8.4-10.2); CARBON DIOXIDE 31 mmol/L (22-29); CHLORIDE 102 mmol/L (98-107); EST GLOMERULAR FILTRATION RATE > 60 ML/MIN (60-); GLUCOSE 101 mg/dL (74-118); POTASSIUM 3.9 mmol/L (3.5-5.1); SODIUM 139 mmol/L (136-145)
[2018-08-01] MEDS: METRONIDAZOLE 500MG/NS 100ML 100 ML IV SCH ×3 (06:55→21:29)
[2018-08-01] MEDS: INSULIN REGULAR, HUMAN 100 UNIT/1 ML 3ML VIAL SQ SCH ×4 (07:30→21:29)
[2018-08-01] MEDS ORDERED: ONDANSETRON HCL 4 MG ORAL DISINTEGRATING TAB PO PRN (10:15)
[2018-08-01] MEDS: TAMSULOSIN HCL 0.4 MG CAP PO SCH (10:17)
[2018-08-01] MEDS: FOLIC ACID 1 MG TAB PO SCH (10:17)
[2018-08-01] MEDS: ENALAPRIL MALEATE 10 MG TAB PO SCH (10:17)
[2018-08-01] MEDS: OXYBUTYNIN CHLORIDE XL 5 MG TAB PO SCH (10:17)
[2018-08-01] MEDS: FERROUS SULFATE 325 MG TAB PO SCH (10:17)
[2018-08-01] MEDS: AMLODIPINE BESYLATE 5 MG TAB PO SCH (12:11)
--- NOTE | 2018-08-01 19:31 | NUR ---
WALKING ROUNDS PERFORMED, RECEIVED PT AMBULATING IN ROOM TO BATHROOM, PT IS AAOX3, RR EVEN AND NON-LABORED, ON ROOM AIR. NO S/SX OF DISTRESS NOTED. PT RETURNED TO BED AND LEFT LAYING SEMI FOWLERS IN BED, BED IN LOW LOCKED POSITION, SIDE RAILS UPX2, CALL LIGHT AND PHONE WITHIN REACH.
[2018-08-02] VITALS (8 sets, daily range): BP systolic 130–178; BP diastolic 60–74
[2018-08-02] MEDS: PIPER-TAZ 3.375 GM 50 ML IV SCH ×5 (00:13→23:52)
[2018-08-02 05:17] LABS: BASOPHILS % 0.3 % (0.0-1.0); EOSINOPHILS # (AUTO) 0.1 (0.0-0.4); EOSINOPHILS % 1.4 % (0.0-6.0); HEMATOCRIT 30.6 % (38.2-49.6); HEMOGLOBIN 10.9 g/dL (14.0-18.0); LYMPHOCYTES # (AUTO) 1.3 (1.0-3.2); MEAN CORPUSCULAR HEMOGLOBIN 33.1 pg (28-32); MEAN CORPUSCULAR HGB CONC 35.6 g/dL (31-35); MONOCYTES # (AUTO) 0.6 (0.2-0.8); MONOCYTES % 9.1 % (4.4-11.3); NEUTROPHILS # (AUTO) 4.9 (2.1-6.9); NEUTROPHILS % 71.1 % (38.7-80.0); PLATELET COUNT 193 x10e3/uL (140-360); RED BLOOD COUNT 3.29 x10e6/uL (4.3-5.7); RED CELL DISTRIBUTION WIDTH 12.7 % (11.7-14.4)
[2018-08-02 05:39] LABS: ANION GAP 13.2 mmol/L (8-16); BLOOD UREA NITROGEN 5 mg/dL (7-26); BUN/CREATININE RATIO 8 (6-25); CALCIUM 8.5 mg/dL (8.4-10.2); CARBON DIOXIDE 29 mmol/L (22-29); CHLORIDE 100 mmol/L (98-107); CREATININE, SERUM 0.66 mg/dL (0.72-1.25); EST GLOMERULAR FILTRATION RATE > 60 ML/MIN (60-); GLUCOSE 84 mg/dL (74-118); POTASSIUM 3.2 mmol/L (3.5-5.1); SODIUM 139 mmol/L (136-145)
[2018-08-02] MEDS: METRONIDAZOLE 500MG/NS 100ML 100 ML IV SCH ×3 (06:36→21:18)
[2018-08-02] MEDS: INSULIN REGULAR, HUMAN 100 UNIT/1 ML 3ML VIAL SQ SCH ×4 (07:30→21:00)
[2018-08-02] MEDS: AMLODIPINE BESYLATE 5 MG TAB PO SCH (08:19)
[2018-08-02] MEDS: OXYBUTYNIN CHLORIDE XL 5 MG TAB PO SCH (08:19)
[2018-08-02] MEDS: ENALAPRIL MALEATE 10 MG TAB PO SCH ×2 (08:19→17:03)
[2018-08-02] MEDS: FOLIC ACID 1 MG TAB PO SCH (08:19)
[2018-08-02] MEDS: TAMSULOSIN HCL 0.4 MG CAP PO SCH (08:19)
[2018-08-02] MEDS: FERROUS SULFATE 325 MG TAB PO SCH (08:19)
[2018-08-02] MEDS ORDERED: POTASSIUM CHLORIDE 20 MEQ TAB CR PO ONE ×3 (10:00→14:00)
--- NOTE | 2018-08-02 16:46 | NUR ---
Per Dr.J Khalil "okay to discharge." Paged Dr.Patel Cespedes Awaiting for call back
--- NOTE | 2018-08-02 17:20 | NUR ---
Repaged Dr.Patel Gaffney to notify of discharge orders. Awaiting for call back
--- NOTE | 2018-08-02 18:14 | NUR ---
D information technology associate for Dr.Patel Cespedes Notified of discharge order. Per " Patient will be discharged tomorrow. BP medications were adjusted today." Dr.J Khalil notified of 's message.
--- NOTE | 2018-08-02 18:55 | NUR ---
Report given to oncoming nurse of patient's status. Resting in bed, side rails upx2, call light within reach. AAOX3 to time, person,place. Respirations even and unlabored. no s/s of acute distress noted.
[2018-08-02] MEDS ORDERED: SODIUM CHLORIDE 0.9% 250ML 250 ML ONE (21:16)
[2018-08-03] VITALS: BP 150/67
[2018-08-03 04:00] VITALS: BP 140/68
[2018-08-03] MEDS: METRONIDAZOLE 500MG/NS 100ML 100 ML IV SCH ×2 (06:00→13:33)
[2018-08-03] MEDS: PIPER-TAZ 3.375 GM 50 ML IV SCH ×2 (06:12→12:00)
[2018-08-03 06:21] LABS: ALANINE AMINOTRANSFERASE 18 IU/L (0-55); ALBUMIN 3.1 g/dL (3.5-5.0); ALBUMIN/GLOBULIN RATIO 1.1 (0.8-2.0); ALKALINE PHOSPHATASE 65 IU/L (40-150); BLOOD UREA NITROGEN 7 mg/dL (7-26); BUN/CREATININE RATIO 9 (6-25); CARBON DIOXIDE 28 mmol/L (22-29); CHLORIDE 102 mmol/L (98-107); CREATININE, SERUM 0.79 mg/dL (0.72-1.25); EST GLOMERULAR FILTRATION RATE > 60 ML/MIN (60-); GLUCOSE 150 mg/dL (74-118); SODIUM 139 mmol/L (136-145)
[2018-08-03] MEDS: INSULIN REGULAR, HUMAN 100 UNIT/1 ML 3ML VIAL SQ SCH ×2 (07:30→11:30)
--- NOTE | 2018-08-03 07:31 | NUR ---
RECEIVED PATIENT AWAKE RESTING IN BED NO SIGNS OF DISTRESS AT THIS TIME. BED LOW, WHEELS LOCKED, SIDE RAILS X2. CALL LIGHT IN REACH WILL CONTINUE TO MONITOR PATIENT.
[2018-08-03 08:14] VITALS: BP 124/58
[2018-08-03] MEDS: ENALAPRIL MALEATE 10 MG TAB PO SCH (08:41)
[2018-08-03] MEDS: AMLODIPINE BESYLATE 5 MG TAB PO SCH (08:41)
[2018-08-03] MEDS: FERROUS SULFATE 325 MG TAB PO SCH (08:52)
[2018-08-03] MEDS: TAMSULOSIN HCL 0.4 MG CAP PO SCH (08:52)
[2018-08-03] MEDS: FOLIC ACID 1 MG TAB PO SCH (08:52)
[2018-08-03] MEDS: OXYBUTYNIN CHLORIDE XL 5 MG TAB PO SCH (08:52)
[2018-08-03 10:08] VITALS: BP 124/58
--- NOTE | 2018-08-03 10:15 | NUR ---
IMM EXPLAINED TO PT, SIGNED BY PT AND PLACED IN CHART COPY TO PT IN CARE TRANSITIONS FOLDER
[2018-08-03] MEDS ORDERED: LINZESS PO (10:19)
[2018-08-03] MEDS ORDERED: LACTULOSE20 GM/30 M PO (10:20)
[2018-08-03] MEDS ORDERED: COLACE100 MG PO (10:21)
--- NOTE | 2018-08-03 10:49 | NUR ---
REMOVED PATIENTS IV. CATHETER TIP INTACT ON REMOVAL AND PRESSURE DRESSING APPLIED.
[2018-08-03 12:33] VITALS: BP 133/60
--- NOTE | 2018-08-03 14:18 | NUR ---
PATIENT DISCHARGED FROM FACILITY. PATIENT GATHERED ALL PERSONAL BELONGINGS, DISCHARGE INSTRUCTIONS AND FOLLOW UP INFORMATION. LEFT UNIT IN WHEELCHAIR AND WENT HOME VIA PRIVATE AUTO. NO SIGNS OF DISTRESS WHEN LEAVING FACILITY.
--- NOTE | 2018-08-04 07:32 | Discharge Summary ---
HISTORY: This is a 73-year-old male patient of mine, who presented with abdominal pain and abdominal distention. ADMITTING IMPRESSION/DIAGNOSIS: The patient had colonic obstruction with cecal volvulus, dehydration, hypertension, diabetes mellitus, and hyperlipidemia. HOSPITAL COURSE SUMMARY: The patient was admitted with a colonic obstruction with a cecal volvulus. The patient was kept n.p.o. NG tube suctioning was done. Surgery consultation was done and the surgery was anticipated if conservative treatment does not work. With the NG tube suctioning and n.p.o., the patient improved and his obstruction had relieved. Subsequently, NG tube was removed and the patient was started on a clear liquid diet and gradually it was advanced. The patient was also given IV antibiotic with Flagyl and Zosyn. Now upon stabilization, antibiotics will be discontinued. The patient had improved significantly. For now, the patient will be discharged home and the patient was advised to take increase in the fiber in the diet and take stool softener Colace. As well as take Linzess to avoid constipation. The patient was advised to follow up with me as an outpatient in the next couple of days. MD CRISTIAN Valencia/WILTON /[id number]
== END 2018-08-03 14:18 | disposition home or self-care (01) | DRG 390 ==
LOC: ER 09:45 → ERHOLD 12:24 → MED/SURG 14:13
PROVIDERS: ADMIT Internal Medicine; ATTEND Internal Medicine
DX: K56.2 Volvulus (principal); E86.0 Dehydration; E78.5 Hyperlipidemia, unspecified; I11.9 Hypertensive heart disease without heart failure; E11.9 Type 2 diabetes mellitus without complications; E87.6 Hypokalemia; J44.9 Chronic obstructive pulmonary disease, unspecified; D64.9 Anemia, unspecified; N40.0 Benign prostatic hyperplasia without lower urinary tract symptoms; K58.9 Irritable bowel syndrome, unspecified; M54.9 Dorsalgia, unspecified; Z79.84 Long term (current) use of oral hypoglycemic drugs
CPT/HCPCS: 36415; 71045; 74018; 74022; 74177; 80048; 80053; 81001; 82550; 82553; 82948; 83605; 83880; 84132; 84484; 85025; 85610; 85730; 87086; 87186; 93005; 99284; J0692; J1817; J2060; J2270; J2405; J2543; J3480; J7030; J7050; Q9967

== ENCOUNTER → 2022-05-09 | Outpatient (CLI) | payer MEDICARE ==
[~2022-05-09] MED LIST changes: +COLACE100 MG PO; +ENALAPRIL MALEA20 MG PO; +FERROUS SULFAT325 MG PO; +FOLIC ACID1 MG PO; +LACTULOSE10 GM/151 PO; +LACTULOSE20 GM/30 M PO; +LINZESS PO; +METFORMIN HCL500 MG PO; +OXYBUTYNIN CHLOR5 M1 PO; +TAMSULOSIN PO; +levothyroxine PO
== END ==
LOC: RAD 09:54
PROVIDERS: ATTEND Internal Medicine
DX: M17.11 Unilateral primary osteoarthritis, right knee (principal)